=== PATIENT | male | born 1995 | race Caucasian/White ===

== ENCOUNTER 2024-03-17 10:41 | Emergency (ER) | payer BC ==
[~2024-03-17] VITALS: Ht 185.4 cm; Wt 70.8 kg
[2024-03-17 10:46] VITALS: BP_SYST 153; PULSE 78; RESP 22; TEMP 98.3; O2SAT 98
[2024-03-17 19:36] LABS: BASOPHILS % (AUTO) 0.4 % (0.0-2.0); EOSINOPHILS % (AUTO) 0.2 % (0.0-4.0); HEMATOCRIT 48.4 % (36-54); HEMOGLOBIN 16.4 g/dL (14.0-18.0); LYMPHOCYTES # (AUTO) 2.4 K/uL (1.0-5.5); LYMPHOCYTES % (AUTO) 23.7 % (20.5-51.5); MEAN CORPUSCULAR HEMOGLOBIN 32 pg (27-31); MEAN CORPUSCULAR HGB CONC 34 % (32-36); MEAN CORPUSCULAR VOLUME 94 fL (79.0-98.0); MONOCYTES # (AUTO) 0.8 K/uL (0.0-1.0); MONOCYTES % (AUTO) 7.8 % (1.7-9.3); NEUTROPHILS % (AUTO) 67.9 % (40.0-70.0); PLATELET COUNT (AUTO) 332 K/uL (130-430); RED BLOOD CELL COUNT(AUTO) 5.18 MIL/uL (4.2-6.2); RED CELL DISTRIBUTION WIDTH 14.1 % (9.0-15.0); WHITE BLOOD COUNT (AUTO) 10.3 K/uL (4.8-10.8)
[2024-03-17 19:45] LABS: ALBUMIN 4.5 g/dL (3.4-4.8); BILIRUBIN,DIRECT 0.2 mg/dL (0.0-0.3); CALCIUM 9.6 mg/dL (8.4-11.0); CREATININE 1.13 mg/dL (0.55-1.30); POTASSIUM 4.8 mmol/L (3.5-5.1); TOTAL BILIRUBIN 0.8 mg/dL (0.0-1.0); TOTAL PROTEIN, SERUM 7.9 g/dL (6.4-8.3)
[2024-03-17] MEDS ORDERED: GABA-529 PO (22:55)
== END 2024-03-17 22:17 | disposition left against medical advice (07) ==
LOC: SED 10:41
DX: M79.10 Myalgia, unspecified site (principal); Z79.899 Other long term (current) drug therapy; Z20.822 Contact with and (suspected) exposure to COVID-19
CPT/HCPCS: 36415; 80048; 80076; 82550; 83735; 85025; 99283

== ENCOUNTER 2024-03-17 22:23 | Emergency (ER) | payer BC ==
[~2024-03-17] VITALS: Ht 185.4 cm; Wt 71.7 kg
[2024-03-17 22:33] VITALS: BP_SYST 133; PULSE 89; RESP 18; TEMP 99; O2SAT 97
[2024-03-17] MEDS ORDERED: GABA-529 PO (22:55)
== END 2024-03-17 23:08 | disposition home or self-care (01) ==
LOC: SED 22:23
DX: Z00.8 Encounter for other general examination (principal); M79.10 Myalgia, unspecified site
CPT/HCPCS: 99283